=== PATIENT | male | born 1995 | race Caucasian/White ===

== ENCOUNTER 2021-07-27 14:13 | Emergency (ER) | payer SELFPAY ==
[~2021-07-27] VITALS: Ht 175.3 cm; Wt 78.0 kg
[2021-07-27 16:51] VITALS: BP 121/61
[2021-07-27] MEDS ORDERED: TETANUS, DIPHTHERIA, PERTUSSIS VAC/PF 0.5ML (>10YR OLD) IM ONE (17:00)
== END 2021-07-27 16:54 | disposition home or self-care (01) ==
LOC: ER 14:13
DX: S02.2XXA Fracture of nasal bones, initial encounter for closed fracture (principal); S09.8XXA Other specified injuries of head, initial encounter; Y08.89XA Assault by other specified means, initial encounter; Y93.89 Activity, other specified; Y92.238 Other place in hospital as the place of occurrence of the external cause
CPT/HCPCS: 12011; 70486; 99284

== ENCOUNTER 2022-08-09 04:13 | Emergency (ER) | payer SELFPAY ==
[~2022-08-09] VITALS: Ht 175.3 cm; Wt 75.0 kg
[2022-08-09 04:26] VITALS: BP 134/76
[2022-08-09] MEDS ORDERED: BENZ100C86 MT (06:08)
== END 2022-08-09 06:22 | disposition home or self-care (01) ==
LOC: ER 04:13
DX: J06.9 Acute upper respiratory infection, unspecified (principal)
CPT/HCPCS: 71045; 99283